=== PATIENT | female | born 1980 | race Caucasian/White ===

== ENCOUNTER → 2017-12-03 | Outpatient (CLI) | payer OTHER | LOC: BRMIMAGING 13:13 | PROVIDERS: ATTEND Internal Medicine | DX: M47.896 Other spondylosis, lumbar region (principal); M41.86 Other forms of scoliosis, lumbar region; M79.641 Pain in right hand; M79.642 Pain in left hand; Q05.7 Lumbar spina bifida without hydrocephalus | CPT/HCPCS: 72114-PO; 73130-PO ==